=== PATIENT | female | born 1990 | race Two or more races ===

== ENCOUNTER 2024-05-07 07:53 | Outpatient (RCR) | payer MEDICAID, SELFPAY ==
--- NOTE | 2024-04-02 09:21 | XR_ITS ---
Examination: Biophysical profile, ultrasound Date and time of exam: April 02, 2024 0929 hours INDICATIONS: Gestational diabetes Technique: Multiple transabdominal sonographic images of the pelvis abdomen obtained. Attention is directed to the breathing movement, gross body movement, amniotic fluid volume and tone. Findings: Amniotic fluid index 11.4 cm Total biophysical profile is 8 of 8. breathing movement is 2. Gross body movement is 2. tone is 2. Qualitative amniotic fluid volume is 2 Impression: Biophysical profile is 8 of 8.
[2024-04-02 09:55] VITALS: BP 97/64; PULSE 82; RESP 16; TEMP 36.6
--- NOTE | 2024-04-05 08:45 | XR_ITS ---
Examination: Biophysical profile, ultrasound Date and time of exam: April 05, 2024 0849 hours INDICATIONS: Gestational diabetes Technique: Multiple transabdominal sonographic images of the pelvis abdomen obtained. Attention is directed to the breathing movement, gross body movement, amniotic fluid volume and tone. Findings: Amniotic fluid index 13.9 cm Total biophysical profile is 8 of 8. breathing movement is 2. Gross body movement is 2. tone is 2. Qualitative amniotic fluid volume is 2 Impression: Biophysical profile is 8 of 8.
[2024-04-05 09:15] VITALS: BP 104/65; PULSE 96; RESP 16; TEMP 36.7
--- NOTE | 2024-04-09 08:52 | XR_ITS ---
Examination: Biophysical profile, ultrasound Date and time of exam: April 09, 2024 0858 hours INDICATIONS: Pelvic pressure beginning a few days ago, diagnosis gestational diabetes Technique: Multiple transabdominal sonographic images of the pelvis abdomen obtained. Attention is directed to the breathing movement, gross body movement, amniotic fluid volume and tone. Findings: Amniotic fluid index 14.1 cm Total biophysical profile is 8 of 8. breathing movement is 2. Gross body movement is 2. tone is 2. Qualitative amniotic fluid volume is 2 Impression: Biophysical profile is 8 of 8.
[2024-04-09 09:43] VITALS: BP 102/56; PULSE 81; RESP 16; TEMP 36.7
--- NOTE | 2024-04-12 09:05 | XR_ITS ---
Examination: Biophysical profile, ultrasound Date and time of exam: April 12, 2024 0920 hours INDICATIONS: Diagnosis gestational diabetes Technique: Multiple transabdominal sonographic images of the pelvis abdomen obtained. Attention is directed to the breathing movement, gross body movement, amniotic fluid volume and tone. Findings: Amniotic fluid index 11.6 cm Total biophysical profile is 8 of 8. breathing movement is 2. Gross body movement is 2. tone is 2. Qualitative amniotic fluid volume is 2 Impression: Biophysical profile is 8 of 8.
[2024-04-12 09:51] VITALS: BP 104/61; PULSE 97; RESP 16; TEMP 36.7
--- NOTE | 2024-04-16 09:31 | XR_ITS ---
Examination: Biophysical profile, ultrasound Date and time of exam: April 16, 2024 0943 hours INDICATIONS: Gestational diabetes diagnosis Technique: Multiple transabdominal sonographic images of the pelvis abdomen obtained. Attention is directed to the breathing movement, gross body movement, amniotic fluid volume and tone. Findings: Amniotic fluid index 8.5 cm Total biophysical profile is 8 of 8. breathing movement is 2. Gross body movement is 2. tone is 2. Qualitative amniotic fluid volume is 2 Impression: Biophysical profile is 8 of 8.
[2024-04-16 10:02] VITALS: BP 112/66; PULSE 82; RESP 16; TEMP 36.4
--- NOTE | 2024-04-19 08:47 | XR_ITS ---
Examination: Biophysical profile, ultrasound Date and time of exam: April 19, 2024 0848 hours INDICATIONS: Gestational diabetes Technique: Multiple transabdominal sonographic images of the pelvis abdomen obtained. Attention is directed to the breathing movement, gross body movement, amniotic fluid volume and tone. Findings: Amniotic fluid index 13.5 cm Total biophysical profile is 8 of 8. breathing movement is 2. Gross body movement is 2. tone is 2. Qualitative amniotic fluid volume is 2 Impression: Biophysical profile is 8 of 8.
[2024-04-19 09:30] VITALS: BP 112/56; PULSE 100; RESP 16; TEMP 36.2
--- NOTE | 2024-04-23 08:56 | XR_ITS ---
Examination: Biophysical profile, ultrasound Date and time of exam: April 23, 2024 0900 hours INDICATIONS: Diagnosis gestational diabetes Technique: Multiple transabdominal sonographic images of the pelvis abdomen obtained. Attention is directed to the breathing movement, gross body movement, amniotic fluid volume and tone. Findings: Amniotic fluid index 9.6 cm Total biophysical profile is 8 of 8. breathing movement is 2. Gross body movement is 2. tone is 2. Qualitative amniotic fluid volume is 2 Impression: Biophysical profile is 8 of 8.
[2024-04-23 10:11] VITALS: BP 122/67; PULSE 78; RESP 16; TEMP 36.7
--- NOTE | 2024-04-26 08:54 | XR_ITS ---
Examination: Biophysical profile, ultrasound Date and time of exam: April 26, 2024 0900 hours INDICATIONS: Diagnosis pre-existing diabetes Technique: Multiple transabdominal sonographic images of the pelvis abdomen obtained. Attention is directed to the breathing movement, gross body movement, amniotic fluid volume and tone. Findings: Amniotic fluid index 9.3 cm Total biophysical profile is 8 of 8. breathing movement is 2. Gross body movement is 2. tone is 2. Qualitative amniotic fluid volume is 2 Impression: Biophysical profile is 8 of 8.
[2024-04-26 09:23] VITALS: BP 120/77; PULSE 83; RESP 16; TEMP 36.7
--- NOTE | 2024-04-30 12:16 | XR_ITS ---
Examination: Biophysical profile, ultrasound Date and time of exam: April 30, 2024 1252 hours INDICATIONS: Pre-existing diabetes, pelvic contractions beginning last night Technique: Multiple transabdominal sonographic images of the pelvis abdomen obtained. Attention is directed to the breathing movement, gross body movement, amniotic fluid volume and tone. Findings: Amniotic fluid index 13.4 cm Total biophysical profile is 8 of 8. breathing movement is 2. Gross body movement is 2. tone is 2. Qualitative amniotic fluid volume is 2 Impression: Biophysical profile is 8 of 8.
[2024-04-30 14:11] VITALS: BP 106/57; PULSE 83; RESP 16; TEMP 36.6
--- NOTE | 2024-05-03 08:51 | XR_ITS ---
Examination: Biophysical profile, ultrasound Date and time of exam: May 03, 2024 0856 hours INDICATIONS: Diagnosis pre-existing diabetes Technique: Multiple transabdominal sonographic images of the pelvis abdomen obtained. Attention is directed to the breathing movement, gross body movement, amniotic fluid volume and tone. Findings: Amniotic fluid index 12.2 cc Total biophysical profile is 8 of 8. breathing movement is 2. Gross body movement is 2. tone is 2. Qualitative amniotic fluid volume is 2 Impression: Biophysical profile is 8 of 8.
[2024-05-03 10:00] VITALS: BP 107/59; PULSE 71; RESP 18; TEMP 36.7
--- NOTE | 2024-05-07 08:04 | XR_ITS ---
Examination: Biophysical profile, ultrasound Date and time of exam: May 07, 2024 0807 hours INDICATIONS: Diagnosis pre-existing diabetes Technique: Multiple transabdominal sonographic images of the pelvis abdomen obtained. Attention is directed to the breathing movement, gross body movement, amniotic fluid volume and tone. Findings: Amniotic fluid index 12.1 cm Total biophysical profile is 8 of 8. breathing movement is 2. Gross body movement is 2. tone is 2. Qualitative amniotic fluid volume is 2 Impression: Biophysical profile is 8 of 8.
[2024-05-07 09:22] VITALS: BP 115/60; PULSE 90; RESP 18; TEMP 36.7
== END 2024-05-07 23:59 | disposition home or self-care (01) ==
LOC: S4S1 07:53
PROVIDERS: PCP Nurse Practitioner Family; Referring Provider Obstetrics & Gynecology; Visit Provider Obstetrics & Gynecology
DX: O24.113 Pre-existing type 2 diabetes mellitus, in pregnancy, third trimester (principal); E11.9 Type 2 diabetes mellitus without complications; Z3A.39 39 weeks gestation of pregnancy; Z79.84 Long term (current) use of oral hypoglycemic drugs
CPT/HCPCS: 59025; 76819

== ENCOUNTER 2024-05-08 09:19 | Inpatient (IN) | payer MEDICAID, SELFPAY ==
[2024-05-08] VITALS (32 sets, daily range): BP systolic 104–140; BP diastolic 59–80; PULSE 69–94; RESP 17–99; TEMP 36.6–36.9; O2SAT 94–99; BMI 15.2; BMI 33.4
[2024-05-08 10:22] LABS: Basophils % (Auto) 0 % (0-2.5); Eosinophils % (Auto) 0 % (0-10); Hematocrit 38.5 % (36.0-46.0); Hemoglobin 13.2 g/dL (12.0-16.0); Immature Granulocytes % (Auto) 1 % (0-0); Immature Granulocytes Auto 0.09 Thou/mm3 (0.00-0.00); Lymphocytes # (Auto) 2.6 Thou/mm3 (1.0-4.8); Lymphocytes % (Auto) 26 % (10-50); Mean Corpuscular HGB Conc 34.3 g/dl (31.0-37.0); Mean Corpuscular Hemoglobin 30.1 pg (25.0-35.0); Mean Corpuscular Volume 88 fL (80-100); Monocytes # (Auto) 0.8 Thou/mm3 (0.0-0.8); Monocytes % (Auto) 8 % (0-12); Neutrophils # (Auto) 6.5 Thou/mm3 (1.8-7.7); Neutrophils % (Auto) 65 % (37-80); Nucleated Red Blood Cell # 0.02 Thou/mm3 (0.00-0.00); Nucleated Red Blood Cell % 0 /100 WBC (0); Platelet Count 240 Thou/mm3 (140-440); RDW Standard Deviation 48.5 fL (36.4-46.3); Red Blood Count 4.38 Miln/mm3 (4.00-5.20)
[2024-05-08] MEDS: RINGERS LACTATED 1000 ML 1,000 ML 125 ML IV (10:38)
[2024-05-08] MEDS: MISOPROSTOL 200 mCg TABLET 800 MCG PR (11:45)
[2024-05-08] MEDS: OXYTOCIN INJ 10 UNIT/ML VIAL IM (11:47)
[2024-05-08] MEDS: OXYTOCIN in NS 20 units 20 UNIT/1,000 ML BAG 125 UNIT IV (11:48)
[2024-05-08] MEDS: TRANEXAMIC ACID 1,000 MG IVPB 1,000 MG/100 ML BAG 200 MG IV (11:48)
--- NOTE | 2024-05-08 12:20 | PD.LDHP ---
Documentation for date of: 05/08/24 OB Labor/Induct. HPI History of Present Illness Chief complaint: labor : 5 Para: 4 Term pregnancies: 4 pregnancies: 0 Living children: 4 History of Abortions: Spontaneous and Elective: 0 History of Vaginal deliveries: 4 History of sections: No History of : No JUSTINA: 05/12/24 Gestational Age (weeks): 39 Gestational Age (days): 2 History of present illness: This is a 33-year-old 5 para 4 admit to labor and delivery with complaints of contractions since 8 in the morning. Patient been followed at [facility] care. First visit 6 weeks. Last. Was made second 2023. This gives due date June 07, 2024. Patient has been followed at [facility] with MFM. Her anatomy scans were normal. She had a normal AFP. Normal NIPT. And normal carrier screens. Patient is O+, antibody screen negative, RPR nonreactive, rubella immune, hepatitis B-, hep C negative, HIV negative, GC and Chlamydia were negative. GBS negative. She had abnormal 1 hour and her 3-hour also elevated. So patient patient has been followed for GDM diet and her sugars were all at goal 95% of the time. Patient denies social habits. Denies surgery. Denies chronic illness History of Present Dating criteria: LMP confirmed by 1st trimester US Adequate Care: Yes Ultrasounds: normal 1st trimester US and normal mid trimester US Obstetrical complications: gestational diabetes Medical complications: none Labs Labs: Negative: Hepatitis B, HIV, Chlamydia, Gonorrhea and Group Beta Strep Review of Systems Review of Systems Systems Reviewed: All systems reviewed, normal except as documented Past Medical History Surgical History SURGICAL: Negative Section Meds Home Medications and Allergies Home Medications ?Medication ?Instructions ?Recorded ?Confirmed ?Type [id number] 1 mg 1 tab PO DAILY 04/06/22 05/08/24 History tablet metformin 1,000 mg tablet 500 mg PO BID 04/26/24 05/08/24 History Allergies Allergy/AdvReac Type Severity Reaction Status Date / Time No Known Allergies Allergy Verified 05/08/24 09:57 OB Exam Physical Exam Vital signs: Temp Pulse Resp BP Pulse Ox 97.9 F 78 17 137/70 H 99 05/08/24 09:33 05/08/24 12:18 05/08/24 09:33 05/08/24 12:18 05/08/24 11:40 Narrative: Normal heart rate and rhythm. Lungs clear no wheezes. Gravid abdomen. Gynecoid pelvis. Estimated weight 7 and half pounds. Vaginal exam on admission was 90%, 4, -1. Vertex. Bag water intact. 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
--- NOTE | 2024-05-08 12:26 | PD.LDDELS ---
Data ([facility]) Data Hx Section: No : 5 Para: 4 Term: 4 : 0 : 0 Delivery Data ([facility]) Labor Data Stimulated/Augmented: No Induction: No ROM Date: 05/08/24 ROM Time: 11:37 Rupture Type: AROM Amniotic Fluid: Clear Delivery Data EDC: 06/07/24 EDC calculated by:: LMP/early US confirmation Labor Onset Stage 1 Date: 05/08/24 Labor Onset Stage 1 Time: 08:00 Labor Onset Stage 2 Date: 05/08/24 Labor Onset Stage 2 Time: 11:43 Delivery Date: 05/08/24 Delivery Time: 11:44 Gestational age (weeks): 39 Gestational age (days): 2 Placenta Delivery Date: 05/08/24 Placenta Delivery Time: 11:48 Delivered by: Ayleen Quezada Delivery nurse: Kalpana Lan Other staff at delivery: Nursery Nurse Other staff at delivery: Brittany Zhu Delivery Method Delivery: Vaginal Delivery Type: Spontaneous Presentation: Vertex Position: OA Anesthesia Type Primary Anesthesia: None Delivery Room Medications Post Delivery Medications: Tocolytics and Cytotec Placenta Placenta Delivery: Spontaneous (placenta inspected, intact) Placenta Sent for Examination: No Cord Sample: Cord Blood Obtained Episiotomy Episiotomy: None EBL Estimated blood loss (ml): 350 Umbilical Cord Umbilical Vessels: 3 Nuchal Cord: None Body Cord: None [place] Data ([facility]) Data Infant Gender: Female Weight Grams: 3340 1 Minute Total: 9 5 Minute Total: 9
[2024-05-08 17:02] LABS: Syphilis Nonreactive (Nonreactive)
[2024-05-08 20:10] LABS: Basophils % (Auto) 0 % (0-2.5); Eosinophils % (Auto) 0 % (0-10); Hematocrit 32.9 % (36.0-46.0); Immature Granulocytes % (Auto) 1 % (0-0); Immature Granulocytes Auto 0.05 Thou/mm3 (0.00-0.00); Lymphocytes # (Auto) 1.6 Thou/mm3 (1.0-4.8); Lymphocytes % (Auto) 14 % (10-50); Mean Corpuscular HGB Conc 33.4 g/dl (31.0-37.0); Mean Corpuscular Volume 90 fL (80-100); Monocytes # (Auto) 0.8 Thou/mm3 (0.0-0.8); Monocytes % (Auto) 7 % (0-12); Neutrophils # (Auto) 8.5 Thou/mm3 (1.8-7.7); Neutrophils % (Auto) 78 % (37-80); Nucleated Red Blood Cell # 0.02 Thou/mm3 (0.00-0.00); Nucleated Red Blood Cell % 0 /100 WBC (0); Platelet Count 223 Thou/mm3 (140-440); RDW Standard Deviation 48.7 fL (36.4-46.3); Red Blood Count 3.67 Miln/mm3 (4.00-5.20)
[2024-05-09 00:44] VITALS: BP 116/67; PULSE 79; RESP 16; TEMP 36.7; O2SAT 97
[2024-05-09 04:10] VITALS: BP 120/65; PULSE 80; RESP 16; TEMP 37.1; O2SAT 97
--- NOTE | 2024-05-09 07:17 | PD.LDPPPRG ---
Subjective Subjective Interval history: No complaints of pain. No dizziness. Bonding and breast-feeding Exam Vital Signs Temp Pulse Resp BP Pulse Ox O2 Del Method 98.7 F 80 16 120/65 97 Room Air 05/09/24 04:10 05/09/24 04:10 05/09/24 04:10 05/09/24 04:10 05/09/24 04:10 05/09/24 04:10 Narrative Exam Vitals stable afebrile. Breasts are soft. Fundus firm below the mellitus. Perineum intact no swelling. Small lochia. 2+ DTRs uterus well involuted. Negative Homans' sign. Objective Labs 05/08/24 19:47 Labs: Laboratory Results - last 24 hr 05/08/24 05/08/24 09:45 19:47 WBC 10.0 11.0 RBC 4.38 3.67 L Hgb 13.2 11.0 L D Hct 38.5 32.9 L MCV 88 90 MCH 30.1 30.0 MCHC 34.3 33.4 RDW Std Deviation 48.5 H 48.7 H Plt Count 240 223 Neut % (Auto) 65 78 Lymph % (Auto) [address] [place] % (Auto) 8 7 Eos % (Auto) 0 0 Baso % (Auto) 0 0 Neut # (Auto) 6.5 8.5 H Lymph # (Auto) 2.[address] [place] # (Auto) 0.8 0.8 Eos # (Auto) 0.0 0.0 Baso # (Auto) 0.0 0.0 Immature Gran # (Auto) 0.09 H 0.05 H Absolute Nucleated RBC 0.02 H 0.02 H Immature Gran % 1 H 1 H Nucleated RBC % 0 0 Syphilis Serology Nonreactive Blood Type O Positive Antibody Screen NEGATIVE Blood Bank Wristband ID Yes Assessment & Plan Assessment Comment Assessment comment: 24 hr pp Plan Comment Plan Comment: Discharge home with baby. Continue vitamins and iron. Tylenol ibuprofen for pain. Danger signs. Return in 3 weeks visit. Discussed ER precautions and parameters. Discussed signs symptoms of infection. Time Spent With Patient Time: Total time spent is greater than 50% in coordination of care (as documented) at patient's floor/unit and/or counseling patient:
--- NOTE | 2024-05-09 07:19 | PD.LDDS ---
DS: Providers Provider Date of admission: 05/08/24 09:54 Primary care physician: Physician No Primary/Family Admitting Provider: Tay Castillo MD Attending Provider on Admission: Ayleen Quezada CNM Consults: 05/08/24 13:03 Referral Routine Comment: Attending Provider on DC: Ayleen Quezada CNM Discharging Provider: Ayleen Quezada CNM DS: Diagnosis Problem List Completed Was Problem List Reviewed/Reconciled?: Yes Summary/Hosp Course Brief History: This is a 33-year-old 5 para 4 admit to labor and delivery with complaints of contractions since 8 in the morning. Patient been followed at [facility] care. First visit 6 weeks. Last. Was made second 2023. This gives due date June 07, 2024. Patient has been followed at [facility] with MFM. Her anatomy scans were normal. She had a normal AFP. Normal NIPT. And normal carrier screens. Patient is O+, antibody screen negative, RPR nonreactive, rubella immune, hepatitis B-, hep C negative, HIV negative, GC and Chlamydia were negative. GBS negative. She had abnormal 1 hour and her 3-hour also elevated. So patient patient has been followed for GDM diet and her sugars were all at goal 95% of the time. Patient denies social habits. Denies surgery. Denies chronic illness Peripartum Data Delivery Method: Normal Vaginal Delivery Episiotomy Description: None Laceration Description: no Time Spent with Patient Time attestation: Total time spent providing and/or coordinating discharge services: Exam Vital Signs Temp Pulse Resp BP Pulse Ox O2 Del Method 98.7 F 80 16 120/65 97 Room Air 05/09/24 04:10 05/09/24 04:10 05/09/24 04:10 05/09/24 04:10 05/09/24 04:10 05/09/24 04:10 Discharge Plan Plan Patient Disposition: HOME (Self Care) Prescriptions/Referrals Prescriptions/Med Rec: No Action 1 mg Tablet 1 tab PO DAILY metformin 1,000 mg tablet 500 mg PO BID Patient Comments: TAKE 1 TABLET BY MOUTH EVERY 12 HOURS WITH A MEAL Referrals: No Primary/Family,Physician [Primary Care Provider] - Patient/Caregiver Discharge Instructions Print Language: Beninese Activity Restrictions/Additional Instructions: Discharge home with baby. Continue vitamins and iron. Tylenol ibuprofen for pain. Danger signs. Return in 3 weeks visit. Discussed ER precautions parameters. Discussed signs symptoms of infection. Stand Alone Forms: Noemi Award Info., Patient Portal Info Letter Discharge Order Discharge Orders: Discharge (Routine); Ordered 05/09/24 Ordered By: Ayleen Quezada Planned Discharge Date 05/09/24
[2024-05-09 07:51] VITALS: BP 125/70; PULSE 79; RESP 17; TEMP 36.7; O2SAT 97
[2024-05-09] MEDS: DOCUSATE SOD 100 MG CAPSULE PO (08:45)
== END 2024-05-09 15:40 | disposition home or self-care (01) | DRG 560 ==
LOC: S4SX 12:37 → S4NX 18:06
PROVIDERS: Admitting Provider Student in an Organized Health Care Education/Training Program; Visit Provider Advanced Practice Midwife
DX: O24.420 Gestational diabetes mellitus in childbirth, diet controlled (principal); Z37.0 Single live birth; Z3A.39 39 weeks gestation of pregnancy
CPT/HCPCS: 36415; 59025; 59409; 85025; 86780; 86850; 86900; 86901; 94762; J2590; J3490; J7120; S0191; A9270